=== PATIENT | female | born 1970 | race Hispanic/Latino ===

== ENCOUNTER 2017-02-20 07:25 | Emergency (ER) | payer OTHER ==
[~2017-02-20] VITALS: Ht 162.6 cm; Wt 72.6 kg
[~2017-02-20 07:25] MED LIST: ALPH-E-MIXED-4400 IU PO; ALPRAZOLAM0.5 MG PO; BIOTIN1000 MCG PO; DULOXETINE HCL30 MG PO; ESCITALOPRAM20 MG PO; FLEXERIL10 MG PO; MEDROL DOSEPAK1 PAC PO; MELOXICAM7.5 M1 PO; NORCO 325 MG-51 TAB PO; OMEPRAZOLE20 M3 PO; PERCOCET 325 MG1 TA2 PO; PERCOCET 325 MG1 TAB PO; PERCOCET 7.5-31 EACH PO; POLYTRIM EYE DR10 ML OPH; SUMATRIPTAN SU100 MG PO; VICODIN5-300 PO; VITAMIN D1000 IU PO; ZOFRAN ODT4 M1 SL; ZOFRAN4 M1 PO; [UNRECOGNIZED DRUG - OTHER] PO
--- NOTE | 2017-02-20 07:45 | ED GI/GU/ABDOMINAL COMPLAINT ---
History of Present Illness General Chief Complaint: Abdominal Pain/Flank Pain Stated Complaint: ABD PAIN,SOB Source: patient Exam Limitations: no limitations Vital Signs & Intake/Output Vital Signs & Intake/Output Vital Signs Date Time Temp Pulse Resp B/P B/P Pulse O2 O2 Flow FiO2 Mean Ox Delivery Rate 02/20 1139 98.2 86 20 108/63 99 Room Air ED Intake and Output 02/21 0000 02/20 1200 Intake Total 1000 Output Total Balance 1000 Intake, IV 1000 Patient 160 lb Weight Allergies Coded Allergies: MDX - Naproxen (From [facility]) (Intermediate, HIVES 11/08/14) Reconcile Medications Biotin (Unknown Strength) TAB (Unknown Dose) PO DAILY SUPPLEMENT (Reported) Duloxetine HCl 30 MG CAPSULE.DR 1 CAP PO DAILY MENTAL HEALTH (Reported) Meloxicam 7.5 MG TABLET 15 MG PO DAILY PAIN (Reported) Omeprazole 20 MG TABLET.DR 1 TAB PO BID REFLUX Ondansetron (Zofran Odt) 4 MG TAB.RAPDIS 1 TAB PO Q6 PRN NAUSEA Sumatriptan Succinate 100 MG TABLET 1 TAB PO AD PRN MIGRANES (Reported) may repeat in 2 hours; do not exceed 200 mg in 24 hours Triage Note: PT STATES SHE WOKE UP AT 0500 WITH UPPER ABDOMINAL PAIN N/V. PT ACTIVELY VOMITING BILEOUS APPEARING EMESIS IN TRIAGE. STATES SHE HAS HAD THE SAME PAIN IN THE PAST Triage Nurses Notes Reviewed? yes ? N Is pt currently ? No Onset: Abrupt Duration: hour(s): (SEVERAL) HPI: 46-year-old female presents to the ER with chief complaint of epigastric abdominal pain, multiple episodes of vomiting that started a few hours prior to arrival. No radiation of the pain. Denies any fever or chills. Also complains constipation last normal bowel movement was a few days ago. Patient is chronically on pain medications for history of spinal stenosis and arthritis. She states she was using up to 4-5 pills of Percocet a day that was prescribed by Dr. garibay pain management. She felt she was becoming addicted and decided to stop and has been taking her friend's Suboxone since over the weekend. She is taking 15-60 mg a day of Suboxone. Patient may be in acute narcotic withdrawal. Denies any alcohol use. She does smoke medical marijuana. Past History Travel History Traveled to [place] past 21 day No Medical History Any Pertinent Medical History? see below for history Neurological: migraine Musculoskeletal: spinal stenosis, ARTHRITIS Psychiatric: depression Surgical History Surgical History: none Psychosocial History What is your primary language Nepalese Tobacco Use: Never used ETOH Use: denies use Illicit Drug Use: marijuana Family History Hx Contributory? No Review of Systems Review of Systems Constitutional: Denies: chills, fever. GI: Reports: abdominal pain, constipation, nausea, vomiting. Hematologic/Endocrine: Denies: bruising, bleeding, polyuria, polydipsia. Physical Exam Physical Exam General Appearance: well developed/nourished, alert, awake, anxious, mild distress, moderate distress Head: atraumatic, normal appearance Eyes: Bilateral: normal appearance, PERRL, EOMI. Ears, Nose, Throat, Mouth: hearing grossly normal, moist mucous membrane Neck: normal inspection, supple, full range of motion Respiratory: normal breath sounds, chest non-tender, no respiratory distress Cardiovascular: regular rate/rhythm Peripheral Pulses: 2+ radial (R), 2+ radial (L) Gastrointestinal: normal bowel sounds, soft, tenderness (EPIGASTRIC/RUQ) Back: normal inspection, normal range of motion Extremities: normal range of motion Neurologic/Psych: no motor/sensory deficits, awake, alert, oriented x 3 Skin: intact, normal color, warm/dry Core Measures ACS in differential dx? No Severe Sepsis Present: No Septic Shock Present: No Progress Differential Diagnosis: cholecystitis, gastritis, hepatitis, peptic ulcer, PUD/ GERD, perforated viscous, NARCOTIC WITHDRAWAL, GASTRITIS, GASTROPARESIS Plan of Care: Orders Procedure Date/time Status LACTIC ACID 02/20 1100 Complete Add-on Test (ER Only) 02/20 075 Active URINE DRUGS OF ABUSE 02/20 075 Complete URINALYSIS 02/20 075 Complete PARTIAL THROMBOPLASTIN TIME 02/20 075 Complete PROTHROMBIN TIME 02/20 0751 Complete LIPASE 02/20 0751 Complete LACTIC ACID 02/20 0751 Complete HUMAN BETA HCG SCREEN 02/20 075 Complete COMPREHENSIVE METABOLIC PANEL 02/20 0751 Complete CBC WITHOUT DIFFERENTIAL 02/20 075 Complete AMYLASE 02/20 0751 Complete Laboratory Tests 02/20/17 1100: Lactic Acid 1.0 02/20/17 0930: Urine Opiates Screen < 100.00, Methadone Screen 59, Barbiturate Screen < 60, Ur Phencyclidine Scrn < 6.00, Amphetamines Screen < 100, U Benzodiazepines Scrn < 85, Urine Cocaine Screen < 50, Urine Cannabis Screen > 80.00 H, Urinalysis LIGHT H, Urine Color YEL, Urine Clarity CLEAR, Urine pH 7.5, Ur Specific [place] 1.020, Urine Protein 30 H, Urine Ketones TRACE H, Urine Nitrite NEG, Urine Bilirubin NEG, Urine Urobilinogen 0.2, Ur Leukocyte Esterase NEG, Ur Microscopic SEDIMENT EXAMINED, Urine RBC RARE, Urine WBC 1-3 H, Ur Epithelial Cells MANY H, Urine Bacteria FEW H, Urine Mucus MOD H, Urine Hemoglobin NEG, Urine Glucose NEG 02/20/17 0844: Lactic Acid Cancelled 02/20/17 0755: Anion Gap 12, Estimated GFR > 60, BUN/Creatinine Ratio 17.1, Glucose 129 H, Lactic Acid 2.7 H, Calcium 9.6, Total Bilirubin 0.5, AST 26, ALT 38, Alkaline Phosphatase 62, Total Protein 6.9, Albumin 4.1, Globulin 2.8, Albumin/Globulin Ratio 1.5, Amylase 111 H, Lipase 186, Total Beta HCG NEGATIVE, PT 10.9, INR 1.04, APTT 28, CBC w Diff NO MAN DIFF REQ, RBC 4.26, MCV 93.3, MCH 31.7 H, RDW 12.5, MPV 7.1 L, Gran % 85.5 H, Lymphocytes % 10.9 L, Monocytes % 3.0, Eosinophils % 0.4, Basophils % 0.2, Absolute Granulocytes 13.1 H, Absolute Lymphocytes 1.7, Absolute Monocytes 0.5, Absolute Eosinophils 0.1, Absolute Basophils 0, PUBS MCHC 34.0 LABS, UTOX, NS, ZOFRAN, TORADOL ORDERED. PATIENT IMPROVED. LACTIC ELEVATED, U/S PENDING. 11:40 AM PATIENT IMPROVED AFTER IV FLUIDS. NO NAUSEA OR PAIN AT THIS TIME. REPEAT LACTIC IS 1. I ASKED HER TO TALK TO DR PEÑA REGARDING TAPERING HER PERCOCET INSTEAD OF COMING OFF OF THEM ABRUPTLY. ABDOMEN SOFT NONTENDER. (YAHIR ALFREDO,JUAN) Diagnostic Imaging: Viewed by Me: Ultrasound. Discussed w/RAD: Ultrasound. Radiology Impression: PATIENT: SEDRICK JEWELL PRESENT AGE: 46 PATIENT ACCOUNT NO: [id number] : 71 LOCATION: [facility] ORDERING PHYSICIAN: JUAN SINCLAIR MD SERVICE DATE: 02/20/17 EXAM TYPE: US - US- LIMITED ABDOMEN EXAMINATION: US ABDOMEN LIMITED CLINICAL INFORMATION: 46-year- old female with right upper quadrant pain and vomiting.. COMPARISON: None TECHNIQUE: Real-time imaging of the right upper quadrant abdominal viscera. FINDINGS: PANCREAS: Unremarkable. LIVER: Normal. The liver demonstrates normal size, contour and echogenicity. No focal lesion or intrahepatic biliary duct dilatation. GALLBLADDER: Normal. The gallbladder is physiologically distended without evidence of stones, sludge, polyps, wall thickening or pericholecystic fluid. COMMON BILE DUCT: Normal in caliber measuring 0.3 cm in diameter. RIGHT KIDNEY: Normal. No hydronephrosis. No renal calculi or focal parenchymal lesions. The kidney measures 10.2 cm in maximum dimension. FREE FLUID: None. IMPRESSION: Unremarkable right upper quadrant abdominal ultrasound. No evidence of cholelithiasis or acute cholecystitis. DICTATED BY: RADHIKA MO DO DATE/ TIME DICTATED:02/20/17916 MANAGEMENT TRAINER:ROBERT DATE/TIME TRANSCRIBED: 02/20/17916 CONFIDENTIAL, DO NOT COPY WITHOUT APPROPRIATE AUTHORIZATION. < Electronically signed in Other Vendor System> SIGNED BY: RADHIKA MO DO 02/20/17921 Initial ED EKG: none Departure Departure Time of Disposition: 1128 Disposition: HOME OR SELF CARE Condition: Stable Clinical Impression Primary Impression: Narcotic withdrawal Referrals: DALTON GRAYSON,SALMA SHEPHERD (PCP/Family) Additional Instructions: Take Zofran for nausea. Please talk to Dr. Peña regarding tapering your pain medications rather than stopping them abruptly and using Suboxone. Drink plenty of fluids. Return to the ER as needed. Departure Forms: Customer Survey General Discharge Information Prescriptions: Current Visit Scripts Ondansetron (Zofran Odt) 1 TAB PO Q6 PRN NAUSEA #20 TAB
[2017-02-20 08:04] LABS: ABSOLUTE BASOPHIL COUNT 0 /CUMM (0.0-0.2); ABSOLUTE EOSINOPHIL COUNT 0.1 /CUMM (0.0-0.7); ABSOLUTE GRANULOCYTE CT 13.1 /CUMM (1.4-6.5); ABSOLUTE LYMPH COUNT 1.7 /CUMM (1.2-3.4); ABSOLUTE MONOCYTE COUNT 0.5 /CUMM (0.10-0.60); BASOPHIL % 0.2 % (0.0-2.0); EOSINOPHIL % 0.4 % (0-5); HEMATOCRIT 39.7 % (37-47); MEAN CORPUSCULAR HGB 31.7 PG (27.0-31.0); MEAN CORPUSCULAR VOLUME 93.3 FL (81.0-99.0); MEAN PLATELET VOLUME 7.1 FL (7.4-10.4); PLATELET COUNT 351 /CUMM (130-400); RBC DISTRIBUTION WIDTH 12.5 % (11.5-14.5); RED BLOOD CELL CT 4.26 /CUMM (4.20-5.40); WHITE BLOOD CELL COUNT 15.3 /CUMM (4.8-10.8)
[2017-02-20 08:18] LABS: GRANULOCYTE % 85.5 % (42.2-75.2)
[2017-02-20 08:20] LABS: PT 10.9 SEC (9.4-12.5); PTT 28 SEC (25-37)
--- NOTE | 2017-02-20 09:22 | ULTRASOUND REPORT ---
EXAMINATION: US ABDOMEN LIMITED CLINICAL INFORMATION: 46-year-old female with right upper quadrant pain and vomiting.. COMPARISON: None TECHNIQUE: Real-time imaging of the right upper quadrant abdominal viscera. FINDINGS: PANCREAS: Unremarkable. LIVER: Normal. The liver demonstrates normal size, contour and echogenicity. No focal lesion or intrahepatic biliary duct dilatation. GALLBLADDER: Normal. The gallbladder is physiologically distended without evidence of stones, sludge, polyps, wall thickening or pericholecystic fluid. COMMON BILE DUCT: Normal in caliber measuring 0.3 cm in diameter. RIGHT KIDNEY: Normal. No hydronephrosis. No renal calculi or focal parenchymal lesions. The kidney measures 10.2 cm in maximum dimension. FREE FLUID: None. IMPRESSION: Unremarkable right upper quadrant abdominal ultrasound. No evidence of cholelithiasis or acute cholecystitis.
[2017-02-20] MEDS ORDERED: ZOFRAN ODT4 M1 PO (11:30)
[2017-02-20 11:39] VITALS: BP 108/63
== END 2017-02-20 11:47 ==
LOC: ERH 07:25
PROVIDERS: Emergency Medicine
DX: F11.20 Opioid dependence, uncomplicated (principal)
CPT/HCPCS: 80307; 81001; 96361; 96365; 96375; J1885; J2405; J2550